=== PATIENT | female | born 1990 | race Caucasian/White ===

== ENCOUNTER 2023-06-29 16:17 | Emergency (ER) | payer BC, SELFPAY ==
--- NOTE | ~2023-06-29 | XR_ITS ---
EXAMINATION: XR hip LT min 2V DATE: 06/29/2023 17:54 INDICATION: Left hip pain post fall TECHNIQUE: Anteroposterior , frog leg and cross-table lateral views of the left hip were obtained. COMPARISON: None. FINDINGS: Bone alignment is normal. No fracture. Left hip and bilateral sacroiliac joint spaces are normal. 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 Soft tissues are unremarkable. IMPRESSION: 1. Normal left hip. No acute osseous abnormality. Reviewed, dictated and finalized at location A. D NURSE
--- NOTE | ~2023-06-29 | XR_ITS ---
EXAMINATION: XR lumbar spine 2-3V DATE: 06/29/2023 17:54 INDICATION: Low back pain post fall TECHNIQUE: Anteroposterior and lateral views of the lumbar spine, and cone-down lateral view of the l umbosacral junction were obtained. COMPARISON: None. FINDINGS: 10 degrees lumbar levocurvature. Sagittal alignment is normal. 20% anterior vertebral body height los s at T11 and 10% anterior vertebral body height loss at T10, both of which appears chronic with no sh arply angulated cortex is linear lucency or sclerosis. Normal vertebral body heights at T12 and throu ghout the lumbar spine. Minimal disc height loss with mild degenerative endplate changes at T10-T11 a nd T11-T12. Mild disc height loss at L3-L4 and L4-L5. There is moderate facet osteoarthritis on the r ight at L3-L4 and bilaterally at L4-L5 and L5-S1 with mild facet osteoarthritis and more cephalad lum bar spine. IMPRESSION: 1. Chronic appearing mild anterior wedging at T10 and T11. 2. Mild lumbar levocurvature with mild spondylosis. Reviewed, dictated and finalized at location A. ED [employer]
[2023-06-29 17:33] VITALS: BP 117/80; PULSE 85; RESP 16; TEMP 36.4; O2SAT 99
--- NOTE | 2023-06-29 18:43 | ED.BACK ---
HPI - Back Pain/Injury General Chief Complaint: Back Pain/Injury Stated Complaint: Hip pain Time Seen by Provider: 06/29/23 18:43 Source: patient, RN notes reviewed and old records reviewed Mode of arrival: ambulatory Limitations: no limitations History of Present Illness HPI Narrative: o 32 year old female who presents to [facility] care with complaints of left hip pain and left lower back pain after slipping and falling down stairs at around 1545 today. Patient reports that she hit above her left buttock on the steps when she fell. Patient is able to walk with limping gait states no tingling or numbness in her legs or any saddle paraesthesia.Patient is using ice pack to her left buttock region as comfort measure. Patient reports that pain increases with movement. MD elicited complaint: back pain, fall and other (left hip pain) Onset (ago): hour(s) (today at 1545 fall) Pain scale (0-10): 4 Location: lumbar spine (left lower back and left buttock) and sacrum Exacerbating factors: movement and walking Treatments prior to arrival: cold therapy Work related injury: No Related Data Home Medications Medication Instructions Recorded Confirmed hydroxyzine HCl 25 mg tablet 25 mg PO DIRECTED 06/29/23 06/29/23 ondansetron 4 mg disintegrating 4 mg PO DIRECTED 06/29/23 06/29/23 tablet Review of Systems Review of Systems: CONSTITUTIONAL: Denies fever, chills, or sweats. CARDIOVASCULAR: Denies chest pain, palpitations, or edema. RESPIRATORY: Denies cough or dyspnea. GASTROINTESTINAL: Denies abdominal pain, nausea, vomiting, or diarrhea. GENITOURINARY: Denies dysuria or hematuria. SKIN: Denies rash or itching. MUSCULOSKELETAL: Reports left lower back pain and left buttock pain some left hip discomfort Joint pain or myalgia. NEUROLOGIC: Denies headache, numbness, or weakness. All systems reviewed & are unremarkable except as noted in HPI and below PMFSH Past Medical History Medical History (Updated 07/01/23 @ 11:47 by Kelsi Wheeler NP) IBS (irritable bowel syndrome) Social History Social History (Updated 07/01/23 @ 11:38 by Kelsi Wheeler NP) Smoking status: Never smoker Substance use: current Last use: social Living arrangements: with family Gender identity (if verbalized by the patient): Female Comments At time of signature, agree with nursing past medical, surgical, social and family history. There is no relevant family history pertinent to the presenting complaint Exam Narrative: GENERAL: Well-appearing, well-nourished, and in no acute distress. HEAD: Normocephalic, atraumatic. EYES: PERRLA and EOMI. NECK: Supple. No lymphadenopathy. CHEST: Clear to auscultation. No respiratory distress. HEART: Regular rate and rhythm. Distal pulses palpable and equal, cap refill <3 seconds ABDOMEN: Soft, nontender, nondistended, normal active bowel sounds, no palpable or pulsatile masses. No CVA tenderness MUSCULOSKELETAL: Normal range of motion and strength in all extremities; 5/5 strength with hip flexion and extension, dorsiflexion and extension, knee flexion and extension, plantar flexion and extension. Normal sensation in dermatomal distributions with sensitivity to light touch and pain. No midline back tenderness to palpation. No paraspinal tenderness. Transfers from lying to sitting to standing.increased pain with movement, pain left lower back and left buttock, left posterior hip. No saddle paraesthesia SKIN: Warm, dry, no rash. No ecchymosis, erythema, open wounds to back. NEURO: No focal deficits. Alert and oriented x3. Reflexes intact. Normal gait. PSYCH: Normal mood and affect Course Course Emergency Course: Patient is aware of diagnosis, understands and agrees to treatment plan. Anticipatory guidance given. Patient agrees to follow-up as directed and is aware of reasons to seek care at the emergency department. Portions of this record may have been created with voice kenny
== END 2023-06-29 18:57 | disposition home or self-care (01) ==
PROVIDERS: Emergency Provider Registered Nurse; PCP Family Medicine
DX: M54.50 Low back pain, unspecified (principal); M25.552 Pain in left hip; W10.9XXA Fall (on) (from) unspecified stairs and steps, initial encounter
CPT/HCPCS: 72100; 73502; 99214; G0463